=== PATIENT | male | born 1985 | race Caucasian/White ===

== ENCOUNTER 2018-09-01 15:07 | Emergency (ER) | payer OTHER ==
--- NOTE | 2018-09-01 15:35 | ER ---
Nurse's Notes [facility] Name: Cody Barrios Age: 33 yrs Sex: Male : 1985 Arrival Date: 09/01/2018 Time: 15:10 Bed 23 Private MD: Diagnosis: Otalgia, right ear Presentation: 09/01 15:13 Presenting complaint: Patient states: "I haven't been able to hear out of my right ear aa5 for about a week". Pt c/o pressure to right ear. Transition of care: patient was not received from another setting of care. Onset of symptoms was August 2018. Risk Assessment: Do you want to hurt yourself or someone else? Patient reports no desire to harm self or others. Initial Sepsis Screen: Does the patient meet any 2 criteria? No. Patient's initial sepsis screen is negative. Does the patient have a suspected source of infection? No. Patient's initial sepsis screen is negative. Care prior to arrival: None. 15:13 Method Of Arrival: Ambulatory aa5 15:13 Acuity: SEAMUS 5 aa5 Historical: - Allergies: 15:13 EGG/POULTRY; aa5 15:13 Peanut; aa5 - PMHx: 15:13 Asthma; aa5 - PSHx: 15:13 None; aa5 - Immunization history:: Flu vaccine is not up to date. - Social history:: Smoking status: Patient uses tobacco products, smokes one-half pack cigarettes per day. - Ebola Screening: : No symptoms or risks identified at this time. Screenin:22 Abuse screen: Denies threats or abuse. Nutritional screening: No deficits noted. tw2 Tuberculosis screening: No symptoms or risk factors identified. Fall Risk None identified. Assessment: 15:27 General: Appears in no apparent distress. Behavior is calm, cooperative, appropriate tw2 for age. Pain: Complains of pain in right ear. Neuro: Level of Consciousness is awake, alert, obeys commands, Oriented to person, place, time, situation. Cardiovascular: Patient's skin is warm and dry. Respiratory: Airway is patent Respiratory effort is even, unlabored, Respiratory pattern is regular, symmetrical, Breath sounds are clear bilaterally. GI: No signs and/or symptoms were reported involving the gastrointestinal system. : No signs and/or symptoms were reported regarding the genitourinary system. EENT: Reports pain in right ear pt reports right ear as plugged up and unable to hear from.. Derm: No signs and/or symptoms reported regarding the dermatologic system. Musculoskeletal: Range of motion: intact in all extremities. 15:38 Reassessment: Patient appears in no apparent distress at this time. No changes from tw2 previously documented assessment. Patient and/or family updated on plan of care and expected duration. Pain level reassessed. Patient is alert, oriented x 3, equal unlabored respirations, skin warm/dry/pink. Vital Signs: 15:14 BP 113 / 83; Pulse 99; Resp 18 S; Temp 97.5(TE); Pulse Ox 97% on R/A; Weight 92.08 kg aa5 (R); Height 6 ft. 0 in. (182.88 cm) (R); Pain 10/10; 15:14 Body Mass Index 27.53 (92.08 kg, 182.88 cm) aa5 ED Course: 15:10 Patient arrived in ED. as 15:13 Triage completed. aa5 15:13 Arm band placed on. aa5 15:21 Hector Hernández PA is PHCP. cp 15:21 Irvin Hamilton MD is Attending Physician. cp 15:21 Leanne Clark, LEN is Primary Nurse. tw2 15:22 Bed in low position. Call light in reach. tw2 15:34 Betzy Marino MD is Referral Physician. cp 15:38 No apparent distress. tw2 15:38 No provider procedures requiring assistance completed. Patient did not have IV access tw2 during this emergency room visit. Administered Medications: No medications were administered Outcome: 15:34 Discharge ordered by . cp 15:38 Discharged to home ambulatory. tw2 15:38 Condition: stable 15:38 Discharge instructions given to patient, Instructed on discharge instructions, follow up and referral plans. medication usage, Demonstrated understanding of instructions, follow-up care, medications, Prescriptions given X 2. 15:38 Patient left the ED. tw2 Signatures: Vee Inman Audri, RN RN aa5 Hector Hernández PA PA cp Leanne Clark RN RN tw2
--- NOTE | 2018-09-01 15:35 | EDPHYS ---
Physician Documentation [facility] Name: Cody Barrios Age: 33 yrs Sex: Male : 1985 Arrival Date: 09/01/2018 Time: 15:10 Bed 23 Private MD: ED Physician Irvin Hamilton HPI: 09/01 15:29 This 33 yrs old Male presents to ER via Ambulatory with complaints of Ear cp Pain. 15:29 The patient presents with hearing loss, partial, pain, pressure. The complaints affect cp the right ear. 15:30 Onset: The symptoms/episode began/occurred 1 week(s) ago. Associated signs and cp symptoms: Pertinent positives: cough, Pertinent negatives: fever, rhinorrhea, sinus trouble, sore throat, vomiting. Severity of symptoms: in the emergency department the symptoms are unchanged despite home interventions. Historical: - Allergies: 15:13 EGG/POULTRY; aa5 15:13 Peanut; aa5 - PMHx: 15:13 Asthma; aa5 - PSHx: 15:13 None; aa5 - Immunization history:: Flu vaccine is not up to date. - Social history:: Smoking status: Patient uses tobacco products, smokes one-half pack cigarettes per day. - Ebola Screening: : No symptoms or risks identified at this time. ROS: 15:30 Eyes: Negative for injury, pain, redness, and discharge. cp 15:30 Constitutional: Negative for body aches, chills, fever, poor PO intake. 15:30 ENT: Positive for ear pain, hearing loss, Negative for drainage from ear(s), sinus congestion, sinus pain, sore throat, difficulty swallowing, difficulty handling secretions. 15:30 Respiratory: Positive for cough, Negative for shortness of breath, wheezing. 15:30 Abdomen/GI: Negative for abdominal pain, vomiting, diarrhea, constipation. 15:30 Skin: Negative for cellulitis, rash. 15:30 Neuro: Negative for altered mental status, headache, weakness. 15:30 All other systems are negative. Exam: 15:32 Head/Face: Normocephalic, atraumatic. cp 15:32 Constitutional: The patient appears in no acute distress, alert, awake, non-toxic, well developed, well nourished. 15:32 Eyes: Periorbital structures: appear normal, Conjunctiva: normal, no exudate, no injection, Sclera: no appreciated abnormality, Lids and lashes: appear normal, bilaterally. 15:32 ENT: External ear(s): pain with movement, that is mild, of the right preauricular area, Ear canal(s): erythema, of the right canal, moderate amount cerumen, TM's: right TM obstructed by cerumen, Examination of the other ear shows no obvious abnormality, Nose: is normal, Mouth: is normal, Posterior pharynx: Airway: no evidence of obstruction, patent. 15:32 Neck: ROM/movement: is normal, is supple, without pain, no range of motions limitations, no nuchal rigidity, Lymph nodes: no appreciated lymphadenopathy. 15:32 Chest/axilla: Inspection: normal. cp 15:32 Cardiovascular: Rate: normal, Rhythm: regular. 15:32 Respiratory: the patient does not display signs of respiratory distress, Respirations: normal. 15:32 Skin: cellulitis, is not appreciated, no rash present. Vital Signs: 15:14 BP 113 / 83; Pulse 99; Resp 18 S; Temp 97.5(TE); Pulse Ox 97% on R/A; Weight 92.08 kg aa5 (R); Height 6 ft. 0 in. (182.88 cm) (R); Pain 10/10; 15:14 Body Mass Index 27.53 (92.08 kg, 182.88 cm) aa5 MDM: 15:21 Patient medically screened. cp 15:25 Differential diagnosis: otitis media, otitis externa, ruptured TM, acute otalgia, cp cerumen impaction. 15:33 Data reviewed: vital signs, nurses notes, and as a result, I will discharge patient. cp 15:33 Counseling: I had a detailed discussion with the patient and/or guardian regarding: the cp historical points, exam findings, and any diagnostic results supporting the discharge/admit diagnosis, the need for outpatient follow up, an ENT specialist, to return to the emergency department if symptoms worsen or persist or if there are any questions or concerns that arise at home. Administered Medications: No medications were administered Disposition: 09/01/18 15:34 Discharged to Home. Impression: Otalgia, right ear. - Condition is Stable. - Discharge Instructions: Earache, Adult. - Prescriptions for Amoxicillin 875 mg Oral Tablet - take 1 tablet by ORAL route every 12 hours for 10 days; 20 tablet. Medrol (William) 4 mg Oral Tablets, Dose Pack - take 1 tablet by ORAL route as directed - follow package instructions; 1 packet. - Medication Reconciliation Form, Thank You Letter, Antibiotic Education, Prescription Opioid Use, Work release form form. - Follow up: Betzy Marino MD; When: 2 - 3 days; Reason: symptoms continue. - Problem is new. - Symptoms are unchanged. Addendum: 09/04/2018 07:10 Co-signature as Attending Physician, Irvin Hamilton MD I agree with the assessment and k dr plan of care. Signatures: Irvin Hamilton MD MD [facility] Karen Parker, RN RN aa5 Hector Hernández PA PA cp Leanne Clark, RN RN tw2 Corrections: (The following items were deleted from the chart) 09/01 15:38 15:34 09/01/2018 15:34 Discharged to Home. Impression: Otalgia, right ear. Condition is tw2 Stable. Forms are Work release form, Medication Reconciliation Form, Thank You Letter, Antibiotic Education, Prescription Opioid Use. Follow up: Betzy Marino; When: 2 - 3 days; Reason: symptoms continue. Problem is new. Symptoms are unchanged. cp
[2018-09-01 16:28] VITALS: BP 113/83; TEMP 97.5; O2SAT 97
== END 2018-09-01 15:38 | disposition home or self-care (01) ==
LOC: ER 15:07
DX: H92.01 Otalgia, right ear (principal); F17.210 Nicotine dependence, cigarettes, uncomplicated; Z91.010 Allergy to peanuts; Z91.012 Allergy to eggs; Z91.018 Allergy to other foods
CPT/HCPCS: 99282

== ENCOUNTER 2020-05-04 09:39 | Emergency (ER) | payer OTHER, SELFPAY ==
--- NOTE | 2020-05-04 10:20 | EDPHYS ---
Physician Documentation [facility] Name: Cody Barrios Age: 34 yrs Sex: Male : 1985 Arrival Date: 05/04/2020 Time: 09:42 Bed 6 Private MD: ED Physician José Morales HPI: 05/04 09:57 This 34 yrs old Male presents to ER via Ambulatory with complaints of Hand rn Injury. 09:57 The patient or guardian reports injury, pain, swelling. The complaints affect the MCP rn of right ring finger and MCP of right little finger. Onset: The symptoms/episode began/occurred yesterday. Modifying factors: The symptoms are alleviated by nothing, the symptoms are aggravated by movement. Severity of symptoms: At their worst the symptoms were moderate, in the emergency department the symptoms are unchanged. The patient has not experienced similar symptoms in the past. Reports accidentally punched wall yesterday, did not hit a human mouth or suffer a cut. Is right handed. Increased pain and swelling today. . Historical: - Allergies: 09:48 EGG/POULTRY; sv 09:48 Peanut; sv - PMHx: 09:48 Asthma; sv - PSHx: 09:49 right wrist; sv - Immunization history:: Flu vaccine is not up to date. - Social history:: Smoking status: Patient reports the use of cigarette tobacco products, smokes one-half pack cigarettes per day. - Family history:: not pertinent. - Hospitalizations: : No recent hospitalization is reported. ROS: 09:57 MS/Extremity: + right hand injury and swelling rn Exam: 09:57 Constitutional: This is a well developed, well nourished patient who is awake, alert, rn appears in pain MS/ Extremity: Pulses equal, no cyanosis. NV intact. + right hand with tenderness and swelling 4th/5th MC region, no laceration. Vital Signs: 09:47 BP 141 / 90; Pulse 81; Resp 20; Temp 98.8; Pulse Ox 99% ; Weight 90.72 kg; Height 6 ft. sv 0 in. (182.88 cm); Pain 7/10; 10:30 BP 121 / 77; Pulse 63; Resp 16; Pulse Ox 98% ; sv 09:47 Body Mass Index 27.12 (90.72 kg, 182.88 cm) sv MDM: 09:43 Patient medically screened. rn 10:17 Differential diagnosis: closed fracture. Data reviewed: vital signs, nurses notes, rn radiologic studies, plain films, and as a result, I will discharge patient. Test interpretation: by ED physician or midlevel provider: plain radiologic studies, Xray right hand shows comminuted distal right 5th MC fracture. Counseling: I had a detailed discussion with the patient and/or guardian regarding: the historical points, exam findings, and any diagnostic results supporting the discharge/admit diagnosis, radiology results, the need for outpatient follow up, to return to the emergency department if symptoms worsen or persist or if there are any questions or concerns that arise at home. Response to treatment: the patient's symptoms have mildly improved after treatment, and as a result, I will discharge patient. Special discussion: I discussed with the patient/guardian in detail that at this point there is no indication for admission to the hospital. It is understood, however, that if the symptoms persist or worsen the patient needs to return immediately for re-evaluation. Based on the history and exam findings, there is no indication for further emergent testing or inpatient evaluation. I discussed with the patient/guardian the need to see the hand specialist for further evaluation of the symptoms. ED course: Will splint, no scissoring on exam noted, minimal displacement on xray, will f/u with hand surgery for possible surgical fixation.. 05/04 09:55 Order name: XRAY Hand RIGHT 3 View; Complete Time: 10:38 rn 05/04 10:16 Order name: Splint - Ulnar Gutter; Complete Time: 10:37 rn Administered Medications: 10:20 Drug: morphine 4 mg Route: IM; Site: left deltoid; sv 10:48 Follow up: Response: No adverse reaction; RASS: Alert and Calm (0) sv Disposition: 05/04/20 10:19 Discharged to Home. Impression: Displaced fracture of shaft of fifth metacarpal bone, right hand. - Condition is Stable. - Discharge Instructions: Metacarpal Fracture, Wrist Splint. - Prescriptions for Tylenol- Codeine #3 300-30 mg Oral Tablet - take 1 tablet by ORAL route every 6 hours As needed; 15 tablet. - Medication Reconciliation Form, Thank You Letter, Antibiotic Education, Prescription Opioid Use form. - Follow up: Jose Fuentes MD; When: 5 - 6 days; Reason: Recheck today's complaints, Re-evaluation by your physician. - Problem is new. - Symptoms have improved. Signatures: Dispatcher [employer] Betzy Healy RN RN José Morales MD MD rn transitional: (The following items were deleted from the chart) 09:49 09:48 PSHx: None; sv sv 10:49 10:19 05/04/2020 10:19 Discharged to Home. Impression: Displaced fracture of shaft of sv fifth metacarpal bone, right hand. Condition is Stable. Forms are Medication Reconciliation Form, Thank You Letter, Antibiotic Education, Prescription Opioid Use. Follow up: Jose Fuentes; When: 5 - 6 days; Reason: Recheck today's complaints, Re-evaluation by your physician. Problem is new. Symptoms have improved. rn
--- NOTE | 2020-05-04 10:20 | ER ---
Nurse's Notes [facility] Name: Cody Barrios Age: 34 yrs Sex: Male : 1985 Arrival Date: 05/04/2020 Time: 09:42 Bed 6 Private MD: Diagnosis: Displaced fracture of shaft of fifth metacarpal bone, right hand Presentation: 05/04 09:47 Chief complaint: Patient states: right hand injury after punching a wall on accident sv last night. Coronavirus screen: Client denies travel out of the [place] in the last 14 days. At this time, the client does not indicate any symptoms associated with coronavirus-19. Ebola Screen: No symptoms or risks identified at this time. Initial Sepsis Screen: Does the patient meet any 2 criteria? No. Patient's initial sepsis screen is negative. Does the patient have a suspected source of infection? No. Patient's initial sepsis screen is negative. Risk Assessment: Do you want to hurt yourself or someone else? Patient reports no desire to harm self or others. Onset of symptoms was May 03, 2020. 09:47 Method Of Arrival: Ambulatory 09:47 Acuity: SEAMUS 3 sv Triage Assessment: 09:48 General: Appears in no apparent distress. uncomfortable, well developed, Behavior is sv calm, cooperative, appropriate for age. Pain: Complains of pain in right hand Pain currently is 7 out of 10 on a pain scale. Neuro: Level of Consciousness is awake, alert, obeys commands, Oriented to person, place, time, situation, Moves all extremities. Full function Gait is steady. Cardiovascular: Patient's skin is warm and dry. Respiratory: Respiratory effort is even, unlabored, Respiratory pattern is regular, symmetrical. Musculoskeletal: Range of motion: intact in all extremities, Swelling present in right hand. Injury Description: none. Historical: - Allergies: 09:48 EGG/POULTRY; sv 09:48 Peanut; sv - PMHx: 09:48 Asthma; sv - PSHx: 09:49 right wrist; sv - Immunization history:: Flu vaccine is not up to date. - Social history:: Smoking status: Patient reports the use of cigarette tobacco products, smokes one-half pack cigarettes per day. - Family history:: not pertinent. - Hospitalizations: : No recent hospitalization is reported. Screenin:48 Abuse screen: Denies threats or abuse. Nutritional screening: No deficits noted. em Tuberculosis screening: No symptoms or risk factors identified. Fall Risk None identified. Assessment: 10:03 Reassessment: Xray at the bedside. sv 10:07 Reassessment: Patient appears in no apparent distress at this time. No changes from sv previously documented assessment. Patient and/or family updated on plan of care and expected duration. Pain level reassessed. Patient is alert, oriented x 3, equal unlabored respirations, skin warm/dry/pink. 10:20 Reassessment: Pt up for discharge but is waiting IM shot time. sv 10:47 Reassessment: Patient appears in no apparent distress at this time. Patient and/or sv family updated on plan of care and expected duration. Pain level reassessed. Patient is alert, oriented x 3, equal unlabored respirations, skin warm/dry/pink. Vital Signs: 09:47 BP 141 / 90; Pulse 81; Resp 20; Temp 98.8; Pulse Ox 99% ; Weight 90.72 kg; Height 6 ft. sv 0 in. (182.88 cm); Pain 7/10; 10:30 BP 121 / 77; Pulse 63; Resp 16; Pulse Ox 98% ; sv 09:47 Body Mass Index 27.12 (90.72 kg, 182.88 cm) sv ED Course: 09:42 Patient arrived in ED. mr 09:43 Betzy Montgomery, RN is Primary Nurse. sv 09:43 José Morales MD is Attending Physician. rn 09:47 Triage completed. sv 09:48 Arm band placed on Patient placed in an exam room, on a stretcher. sv 09:48 Patient has correct armband on for positive identification. Bed in low position. Call em light in reach. Pulse ox on. NIBP on. 09:54 ED physician to see patient. sv 10:06 X-ray(s) taken. sv 10:07 Awaiting radiology results. sv 10:12 XRAY Hand RIGHT 3 View In Process Unspecified. EDMS 10:19 Jose Fuentes MD is Referral Physician. rn 10:36 Orthoglass splint: Ulnar gutter/Boxer splint applied on right forearm. capillary refill dh3 <3 seconds, assisted by Betzy Montgomery and Dr. Morales. 10:47 Assist provider with bone marrow aspiration. Patient did not have IV access during this emergency room visit. Administered Medications: 10:20 Drug: morphine 4 mg Route: IM; Site: left deltoid; 10:48 Follow up: Response: No adverse reaction; RASS: Alert and Calm (0) Outcome: 10:19 Discharge ordered by . rn 10:47 Discharged to home ambulatory, with family. sv 10:47 Condition: stable 10:47 Discharge instructions given to patient, Instructed on discharge instructions, follow up and referral plans. medication usage, Demonstrated understanding of instructions, follow-up care, medications, Prescriptions given X 1. 10:49 Patient left the ED. Signatures: Dispatcher [employer] Betzy Healy RN RN Holly Rodríguez Edgar, RN RN em Nieto, Roman, MD MD rn Herrera, Deanna 3 Corrections: (The following items were deleted from the chart) 09:49 09:48 PSHx: None; [facility]
--- NOTE | 2020-05-04 10:27 | RAD REPORT ---
EXAM DESCRIPTION: RAD - Hand Right 3 View - 05/04/2020 10:12 am CLINICAL HISTORY: Pain;Swelling COMPARISON: No comparisons FINDINGS: Hardware is in place from distal right radius fracture repair. Ulna styloid is a free bony structure. This is chronic and is probably congenital rather than ununited old fracture. Patient has an acute fracture of the distal fifth metacarpal at the shaft - head junction. Patient fischer s very minimal ventral angulation. Distraction along the dorsal margin is 1 millimeter. No periosteal reaction. No pathologic bone process. No other acute bone or joint finding. No foreign body or signi ficant soft tissue abnormality. IMPRESSION: Distal right fifth metacarpal fracture at the shaft - head junction. Very minimal ventra l angulation of the metacarpal head.
[2020-05-04] MEDS ORDERED: MORPHINE 4 MG/ML SYR ONE (10:32)
[2020-05-04 11:00] VITALS: BP 141/90; TEMP 98.8; O2SAT 99
== END 2020-05-04 10:49 | disposition home or self-care (01) ==
LOC: ER 09:39
PROC: 2W3CX1Z Immobilization of Right Lower Arm using Splint (ICD-10-PCS; principal; 2020-05-04)
DX: S62.326A Displaced fracture of shaft of fifth metacarpal bone, right hand, initial encounter for closed fracture (principal); W22.8XXA Striking against or struck by other objects, initial encounter; Y93.89 Activity, other specified; Y92.9 Unspecified place or not applicable; Z91.010 Allergy to peanuts; Z91.012 Allergy to eggs; Z91.018 Allergy to other foods; F17.210 Nicotine dependence, cigarettes, uncomplicated
CPT/HCPCS: 96372; 99284

== ENCOUNTER 2020-11-02 09:33 | Emergency (ER) | payer SELFPAY ==
[2020-11-02] MEDS ORDERED: dexAMETHasone 10 MG/ML VIAL ONE (12:52)
[2020-11-02] MEDS ORDERED: ALBUTEROL INHALER 60 PUFF/8 GM IH ONE (12:52)
--- NOTE | 2020-11-02 12:58 | RAD REPORT ---
EXAM DESCRIPTION: Sadi Single View11/02/2020 12:53 pm CLINICAL HISTORY: cough COMPARISON: none FINDINGS: The lungs appear clear of acute infiltrate. The heart is normal size IMPRESSION: No acute abnormalities displayed
[2020-11-02 12:59] LABS: SARS-COV-2 RT PCR NEGATIVE (NEGATIVE)
--- NOTE | 2020-11-02 13:12 | EDPHYS ---
Physician Documentation [facility] Name: Cody Barrios Age: 35 yrs Sex: Male : 1985 Arrival Date: 11/02/2020 Time: 09:37 Bed 8 Private MD: ED Physician Jewel Owens HPI: 11/02 12:26 This 35 yrs old Male presents to ER via Ambulatory with complaints of Cough, pm1 Breathing Difficulty. 12:26 The patient or guardian reports cough. Onset: The symptoms/episode began/occurred 3 pm1 day(s) ago. Severity of symptoms: in the emergency department the symptoms are actually worse. Modifying factors: The symptoms are alleviated by nothing, the symptoms are aggravated by history of asthma without any medications. Associated signs and symptoms: Pertinent positives: sore throat, Pertinent negatives: chest pain, diarrhea, fever, vomiting. The patient has not experienced similar symptoms in the past. The patient has not recently seen a physician. Patient's coworker tested positive for covid recently. Historical: - Allergies: 10:10 EGG/POULTRY; ss 10:10 Peanut; ss - PMHx: 10:10 Asthma; ss - PSHx: 10:10 right wrist; ss - Immunization history:: Adult Immunizations up to date. - Social history:: Smoking status: Patient reports the use of cigarette tobacco products, smokes one-half pack cigarettes per day. ROS: 12:26 Constitutional: Negative for fever, chills, and weight loss. pm1 12:26 Cardiovascular: Negative for chest pain, palpitations, and edema. 12:26 Abdomen/GI: Negative for abdominal pain, nausea, vomiting, diarrhea, and constipation, Back: Negative for injury and pain, MS/Extremity: Negative for injury and deformity, Skin: Negative for injury, rash, and discoloration, Neuro: Negative for headache, weakness, numbness, tingling, and seizure. 12:26 ENT: Positive for sore throat, Negative for ear pain, difficulty swallowing, difficulty handling secretions, hoarseness. 12:26 Respiratory: Positive for cough, shortness of breath. Exam: 12:26 Constitutional: This is a well developed, well nourished patient who is awake, alert, pm1 and in no acute distress. Head/Face: Normocephalic, atraumatic. 12:26 Back: No spinal tenderness. No costovertebral tenderness. Full range of motion. Skin: Warm, dry with normal turgor. Normal color with no rashes, no lesions, and no evidence of cellulitis. MS/ Extremity: Pulses equal, no cyanosis. Neurovascular intact. Full, normal range of motion. 12:26 Cardiovascular: Exam negative for acute changes, Rate: normal, Rhythm: regular, Pulses: no pulse deficits are appreciated, Edema: is not appreciated. 12:26 Respiratory: the patient does not display signs of respiratory distress, Breath sounds: wheezing: expiratory that is mild, is heard diffusely. 12:26 Neuro: Exam negative for acute changes, Orientation: is normal, Mentation: is normal, Motor: is normal, moves all fours. Vital Signs: 10:08 BP 136 / 78; Pulse 74; Resp 16; Temp 97.8(TE); Pulse Ox 98% on R/A; Weight 90.72 kg; ss Height 6 ft. 0 in. (182.88 cm); Pain 0/10; 12:03 BP 123 / 78; Pulse 56; Resp 20; Pulse Ox 99% on R/A; hb 12:39 BP 130 / 82; Pulse 49; Resp 26; Pulse Ox 95% on R/A; sv 10:08 Body Mass Index 27.12 (90.72 kg, 182.88 cm) ss MDM: 11:46 Patient medically screened. pm1 13:04 Data reviewed: vital signs. Data interpreted: Pulse oximetry: on room air is 95 %. pm1 Interpretation: normal. 13:10 Counseling: I had a detailed discussion with the patient and/or guardian regarding: the pm1 historical points, exam findings, and any diagnostic results supporting the discharge/admit diagnosis, lab results, radiology results, the need for outpatient follow up, to return to the emergency department if symptoms worsen or persist or if there are any questions or concerns that arise at home. 11/02 11:48 Order name: Strep; Complete Time: 13:04 pm1 11/02 12:21 Order name: Chest Single View XRAY; Complete Time: 13:04 pm1 11/02 12:46 Order name: Throat Culture EDTX 11/02 12:59 Order name: COVID-19/FLU A+B; Complete Time: 13:04 [facility] 11/02 11:48 Order name: Droplet/Contact Precautions; Complete Time: 11:54 pm1 11/02 11:48 Order name: Labs collected and sent; Complete Time: 12:03 pm1 11/02 11:48 Order name: O2 Per Protocol; Complete Time: 12:03 pm1 Administered Medications: 12:37 Drug: Albuterol HFA Inhaler 2 puffs Route: Inhalation; sv 12:37 Drug: Decadron (dexamethasone) 10 mg Route: IM; Site: right deltoid; sv Disposition: 14:12 Co-signature as Attending Physician, Jewel Owens MD. johnathan Disposition: 11/02/20 13:11 Discharged to Home. Impression: Acute upper respiratory infection, unspecified. - Condition is Stable. - Discharge Instructions: Upper Respiratory Infection, Adult. - Prescriptions for Bromfed DM 2- 30-10 mg/5 mL Oral syrup - take 10 milliliter by ORAL route every 4 hours As needed; 240 milliliter. Prednisone 20 mg Oral Tablet - take 3 tablet by ORAL route once daily for 5 days; 15 tablet. Albuterol Sulfate 2.5 mg /3 mL (0.083 %) Inhalation Solution for Nebulization - inhale 1 unit by NEBULIZATION route every 8 hours As needed; 1 box. Albuterol Sulfate 90 mcg/actuation - inhale 1-2 puff by INHALATION route every 4-6 hours; 1 Inhaler. - Work release form, Medication Reconciliation Form, Thank You Letter, Antibiotic Education, Prescription Opioid Use form. - Follow up: Emergency Department; When: As needed; Reason: Worsening of condition. Follow up: Private Physician; When: 2 - 3 days; Reason: Recheck today's complaints, Continuance of care, Re-evaluation by your physician. - Problem is new. - Symptoms have improved. Signatures: Dispatcher [employer] EDMS Betzy Montgomery RN RN sv Lam, Pin, MD MD pkl Rhoda Barton RN RN ss Marinas, Patrick, [employer]IST pm1 Alissa Brown RN RN Corrections: (The following items were deleted from the chart) 12:08 11:48 Influenza Screen (A \T\ B)+BA.LAB.BRZ ordered. EDMS EDMS 12:08 11:48 CORONAVIRUS+MR.LAB.BRZ ordered. EDMS EDMS 13:49 13:11 11/02/2020 13:11 Discharged to Home. Impression: Acute upper respiratory hb infection, unspecified. Condition is Stable. Forms are Medication Reconciliation Form, Thank You Letter, Antibiotic Education, Prescription Opioid Use. Follow up: Emergency Department; When: As needed; Reason: Worsening of condition. Follow up: Private Physician; When: 2 - 3 days; Reason: Recheck today's complaints, Continuance of care, Re-evaluation by your physician. Problem is new. Symptoms have improved. pm1
--- NOTE | 2020-11-02 13:12 | ER ---
Nurse's Notes [facility] Name: Cody Barrios Age: 35 yrs Sex: Male : 1985 Arrival Date: 11/02/2020 Time: 09:37 Bed 8 Private MD: Diagnosis: Acute upper respiratory infection, unspecified Presentation: 11/02 10:08 Chief complaint: Patient states: cough and shortness of breath that began 3 days ago. 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 Coronavirus screen: Client denies travel out of the [place] in the last 14 days. Ebola Screen: Patient denies exposure to infectious person. Patient denies travel to an Ebola-affected area in the 21 days before illness onset. Initial Sepsis Screen: Does the patient meet any 2 criteria? No. Patient's initial sepsis screen is negative. Does the patient have a suspected source of infection? No. Patient's initial sepsis screen is negative. Risk Assessment: Do you want to hurt yourself or someone else? Patient reports no desire to harm self or others. Onset of symptoms was October 30, 2020. 10:08 Method Of Arrival: Ambulatory ss 10:08 Acuity: SEAMUS 3 ss Historical: - Allergies: 10:10 EGG/POULTRY; ss 10:10 Peanut; ss - PMHx: 10:10 Asthma; ss - PSHx: 10:10 right wrist; ss - Immunization history:: Adult Immunizations up to date. - Social history:: Smoking status: Patient reports the use of cigarette tobacco products, smokes one-half pack cigarettes per day. Screenin:05 Abuse screen: Denies threats or abuse. Denies injuries from another. Nutritional hb screening: No deficits noted. Tuberculosis screening: No symptoms or risk factors identified. Fall Risk None identified. Assessment: 12:04 General: Appears in no apparent distress. Behavior is calm, cooperative. Pain: Denies hb pain. Neuro: Level of Consciousness is awake, alert, obeys commands, Oriented to person, place, time, situation. Cardiovascular: Capillary refill < 3 seconds Patient's skin is warm and dry. Rhythm is sinus bradycardia. Respiratory: Reports shortness of breath cough that is non-productive, persistent Airway is patent Respiratory effort is mildly labored Respiratory pattern is symmetrical. GI: No signs and/or symptoms were reported involving the gastrointestinal system. : No signs and/or symptoms were reported regarding the genitourinary system. EENT: No signs and/or symptoms were reported regarding the EENT system. Derm: Skin is pink, warm \T\ dry. Musculoskeletal: No signs and/or symptoms reported regarding the musculoskeletal system. Vital Signs: 10:08 BP 136 / 78; Pulse 74; Resp 16; Temp 97.8(TE); Pulse Ox 98% on R/A; Weight 90.72 kg; ss Height 6 ft. 0 in. (182.88 cm); Pain 0/10; 12:03 BP 123 / 78; Pulse 56; Resp 20; Pulse Ox 99% on R/A; hb 12:39 BP 130 / 82; Pulse 49; Resp 26; Pulse Ox 95% on R/A; sv 10:08 Body Mass Index 27.12 (90.72 kg, 182.88 cm) ED Course: 09:37 Patient arrived in ED. mr 10:10 Triage completed. ss 10:10 Arm band placed on right wrist. ss 11:38 Michael Garsia NP is PHCP. pm1 11:38 Jewel Owens MD is Attending Physician. pm1 11:53 Alissa Brown, LEN is Primary Nurse. hb 12:03 Strep Sent. hb 12:05 Patient has correct armband on for positive identification. Call light in reach. Side hb rails up X 1. 12:49 Chest Single View XRAY In Process Unspecified. EDMS Administered Medications: 12:37 Drug: Albuterol HFA Inhaler 2 puffs Route: Inhalation; sv 12:37 Drug: Decadron (dexamethasone) 10 mg Route: IM; Site: right deltoid; sv Outcome: 13:11 Discharge ordered by MD. pm1 13:49 Patient left the ED. hb Signatures: Dispatcher [employer] EDMS Betzy Montgomery RN RN sv RiveraHolly mr Rhoda Barton RN RN Michael Garsia NP HEAD SAWYER pm1 Alissa Brown, LEN RN hb Corrections: (The following items were deleted from the chart) 12:08 12:03 CORONAVIRUS+MR.LAB.BRZ drawn and sent. hb EDMS 12:08 12:03 Influenza Screen (A \T\ B)+BA.LAB.BRZ drawn and sent. hb EDMS
[2020-11-02 13:54] VITALS: TEMP 97.8
[2020-11-02 13:57] VITALS: BP 130/82; O2SAT 95
== END 2020-11-02 13:49 | disposition home or self-care (01) ==
LOC: ER 09:33
DX: J06.9 Acute upper respiratory infection, unspecified (principal); Z20.822 Contact with and (suspected) exposure to COVID-19; F17.210 Nicotine dependence, cigarettes, uncomplicated; Z91.010 Allergy to peanuts; Z91.012 Allergy to eggs; Z91.018 Allergy to other foods
CPT/HCPCS: 0240U; 71045; 87070; 87081; 96372; 99284; J1100

== ENCOUNTER 2021-05-19 15:33 | Emergency (ER) | payer SELFPAY ==
[2021-05-19] MEDS ORDERED: dexAMETHasone 10 MG/ML VIAL ONE (17:52)
--- NOTE | 2021-05-19 17:55 | EDPHYS ---
Physician Documentation [facility] Name: Cody Barrios Age: 35 yrs Sex: Male : 1985 Arrival Date: 05/19/2021 Time: 15:39 Bed 6 Private MD: ED Physician Jewel Owens HPI: 05/19 17:49 This 35 yrs old Male presents to ER via Ambulatory with complaints of pkl Swelling, Rash. 17:49 The rash is located on the body diffusely. The rash can be described as patchy. Onset: pkl The symptoms/episode began/occurred 2 day(s) ago. Rash broke out after working in the yard over the weekend. Historical: - Allergies: 15:51 EGG/POULTRY; aa5 15:51 Peanut; aa5 - PMHx: 15:51 Asthma; aa5 - PSHx: 15:51 wrist; aa5 - Immunization history:: Client reports having NOT received the Covid vaccine. - Social history:: Smoking status: Patient reports the use of cigarette tobacco products, smokes one-half pack cigarettes per day. ROS: 17:49 Eyes: Negative for injury, pain, redness, and discharge, ENT: Negative for injury, pkl pain, and discharge, Neck: Negative for injury, pain, and swelling, Cardiovascular: Negative for chest pain, palpitations, and edema, Respiratory: Negative for shortness of breath, cough, wheezing, and pleuritic chest pain, Abdomen/GI: Negative for abdominal pain, nausea, vomiting, diarrhea, and constipation, Back: Negative for injury and pain, : Negative for injury, bleeding, discharge, and swelling, MS/Extremity: Negative for injury and deformity, Neuro: Negative for headache, weakness, numbness, tingling, and seizure. 17:49 Skin: Positive for rash, diffusely. Exam: 17:49 Eyes: Pupils equal round and reactive to light, extra-ocular motions intact. Lids and pkl lashes normal. Conjunctiva and sclera are non-icteric and not injected. Cornea within normal limits. Periorbital areas with no swelling, redness, or edema. ENT: Nares patent. No nasal discharge, no septal abnormalities noted. Tympanic membranes are normal and external auditory canals are clear. Oropharynx with no redness, swelling, or masses, exudates, or evidence of obstruction, uvula midline. Mucous membranes moist. Neck: Trachea midline, no thyromegaly or masses palpated, and no cervical lymphadenopathy. Supple, full range of motion without nuchal rigidity, or vertebral point tenderness. No Meningismus. Chest/axilla: Normal chest wall appearance and motion. Nontender with no deformity. No lesions are appreciated. Cardiovascular: Regular rate and rhythm with a normal S1 and S2. No gallops, murmurs, or rubs. Normal PMI, no JVD. No pulse deficits. Respiratory: Lungs have equal breath sounds bilaterally, clear to auscultation and percussion. No rales, rhonchi or wheezes noted. No increased work of breathing, no retractions or nasal flaring. Back: No spinal tenderness. No costovertebral tenderness. Full range of motion. Neuro: Awake and alert, GCS 15, oriented to person, place, time, and situation. Cranial nerves II-XII grossly intact. Motor strength 5/5 in all extremities. Sensory grossly intact. Cerebellar exam normal. Normal gait. 17:49 Skin: rash can be described as urticarial, patchy, and is diffusely located. Vital Signs: 15:51 BP 133 / 90; Pulse 67; Resp 18 S; Temp 98.8(TE); Pulse Ox 97% on R/A; Weight 92.99 kg; aa5 Height 6 ft. 0 in. (182.88 cm) (R); 18:22 BP 123 / 88; Pulse 72; Resp 17; Temp 98.3; Pulse Ox 97% on R/A; jt3 15:51 Body Mass Index 27.80 (92.99 kg, 182.88 cm) aa5 MDM: 17:49 Data reviewed: vital signs, nurses notes. pkl 17:54 Patient medically screened. pkl Administered Medications: 17:58 Drug: Decadron (dexamethasone) 10 mg Route: IM; Site: left deltoid; jt3 18:23 Follow up: Response: No adverse reaction jt3 Disposition Summary: 05/19/21 17:54 Discharge Ordered Location: Home pkl Problem: new pkl Symptoms: are unchanged pkl Condition: Stable pkl Diagnosis - Poison sonja pkl Followup: pkl - With: Luis F Claire MD - When: 2 - 3 days - Reason: Re-evaluation by your physician Forms: - Medication Reconciliation Form pkl - Thank You Letter pkl - Antibiotic Education pkl - Prescription Opioid Use pkl Signatures: Jewel Owens MD MD pkl Karen Parker, RN RN aa5 Reji Villanueva RN RN jt3
--- NOTE | 2021-05-19 17:55 | ER ---
Nurse's Notes [facility] Name: Cody Barrios Age: 35 yrs Sex: Male : 1985 Arrival Date: 05/19/2021 Time: 15:39 Bed 6 Private MD: Diagnosis: Poison sonja Presentation: 05/19 15:50 Chief complaint: Patient states: did yard work over the weekend and woke up today with aa5 rash on face and arms. Coronavirus screen: At this time, the client does not indicate any symptoms associated with coronavirus-19. Ebola Screen: No symptoms or risks identified at this time. Initial Sepsis Screen: Does the patient meet any 2 criteria? No. Patient's initial sepsis screen is negative. Does the patient have a suspected source of infection? No. Patient's initial sepsis screen is negative. Risk Assessment: Do you want to hurt yourself or someone else? Patient reports no desire to harm self or others. Onset of symptoms was May 2021. 15:50 Method Of Arrival: Ambulatory aa5 15:50 Acuity: SEAMUS 4 aa5 Historical: - Allergies: 15:51 EGG/POULTRY; aa5 15:51 Peanut; aa5 - PMHx: 15:51 Asthma; aa5 - PSHx: 15:51 wrist; aa5 - Immunization history:: Client reports having NOT received the Covid vaccine. - Social history:: Smoking status: Patient reports the use of cigarette tobacco products, smokes one-half pack cigarettes per day. Screenin:49 Abuse screen: Denies threats or abuse. Denies injuries from another. Nutritional jt3 screening: No deficits noted. Tuberculosis screening: No symptoms or risk factors identified. Fall Risk None identified. Assessment: 17:49 General: Appears in no apparent distress. Behavior is calm, cooperative. Pain: Denies jt3 pain. Respiratory: No deficits noted. Derm: Reports increased itching, Pt. reports rash on face, arms, and stomach. Pt. was recently cutting down trees on Tuesday and symptoms started this morning. Pt. denies SOB. Airway patent on arrival. Pt. has the sniffles on exam. Errythema and some edema to face. Alert and oriented x4. Vital Signs: 15:51 BP 133 / 90; Pulse 67; Resp 18 S; Temp 98.8(TE); Pulse Ox 97% on R/A; Weight 92.99 kg; aa5 Height 6 ft. 0 in. (182.88 cm) (R); 18:22 BP 123 / 88; Pulse 72; Resp 17; Temp 98.3; Pulse Ox 97% on R/A; jt3 15:51 Body Mass Index 27.80 (92.99 kg, 182.88 cm) aa5 ED Course: 15:39 Patient arrived in ED. mr 15:49 Arm band placed on. aa5 15:51 Triage completed. aa5 17:40 Reji Villanueva, RN is Primary Nurse. jt3 17:43 Arm band placed on Patient placed in an exam room, on a stretcher. [facility] 17:45 Luis Alberto Vazquez PA is PHCP. [facility] 17:45 Jewel Owens MD is Attending Physician. [facility] 17:49 Patient has correct armband on for positive identification. Bed in low position. Call jt3 light in reach. Side rails up X2. 17:49 No provider procedures requiring assistance completed. Patient did not have IV access jt3 during this emergency room visit. 17:54 Luis F Claire MD is Referral Physician. pkl Administered Medications: 17:58 Drug: Decadron (dexamethasone) 10 mg Route: IM; Site: left deltoid; jt3 18:23 Follow up: Response: No adverse reaction jt3 Outcome: 17:54 Discharge ordered by . pkl 18:22 Discharged to home ambulatory. jt3 18:22 Condition: good 18:22 Discharge instructions given to patient, Instructed on discharge instructions, medication usage, Demonstrated understanding of instructions, medications. 18:24 Patient left the ED. jt3 Signatures: Jewel Owens MD MD pkLuis Alberto Nassar PA PA jmm Rivera, Mary mr ParkerKaren, RN RN aa5 Jermaine Mckay RN RN ll Reji Villanueva RN RN jt3
[2021-05-19 20:38] VITALS: BP 133/90; TEMP 98.8; O2SAT 97
== END 2021-05-19 18:24 | disposition home or self-care (01) ==
LOC: ER 15:33
DX: L23.7 Allergic contact dermatitis due to plants, except food (principal); Z91.012 Allergy to eggs; Z91.010 Allergy to peanuts; Z91.018 Allergy to other foods; F17.210 Nicotine dependence, cigarettes, uncomplicated
CPT/HCPCS: 96372; 99283; J1100

== ENCOUNTER 2021-11-11 12:07 | Emergency (ER) | payer BC, SELFPAY ==
--- OUTSIDE RECORDS SUMMARY | 2021-11-11 12:10 | XMS REPORT | Continuity of Care Document ---
:1985 Author Organization [facility] t Address [address] [place] [address] Care Team Providers Name Role Phone PREZAS Attending Clinician Unavailable Payers Payer Name Policy Type Policy Number Effective Date Expiration Date S naomi [facility] 2 [id number] 2021 00:00:00 Problems This patient has no known problems. Allergies, Adverse Reactions, Alerts This patient has no known allergies or adverse reactions. Medications This patient has no known medications. Procedures This patient has no known procedures. Encounters Start End Encounter Admission Attending Care Care Encounter Source Date/Time Date/Time Type Type Clinicians Facility Department ID 2021-11-11 2021-11-11 Outpatient KIERA GOLDSTEIN [id number] [place] 10:30:00 10:30:00 SALOME Seybol d 2021-11-11 2021-11-11 Outpatient KIERA GOLDSTEIN [id number] [place] 10:00:00 10:00:00 SALOME Seybol d 2021-11-11 2021-11-11 Outpatient KIERA GOLDSTEIN [id number] [place] 00:00:00 00:00:00 SALOME Seybol d Results This patient has no known results.
[2021-11-11 13:05] LABS: Absolute Lymphocytes (CBC) 1.9 K/uL (0.7-4.9); Hematocrit 45.4 % (39.6-49.0); Lymphocytes % 21.1 % (15.3-44.8); MPV 9.2 fL (7.6-11.3); RBC Red Blood Cell Count 4.87 M/uL (4.33-5.43)
[2021-11-11 13:19] LABS: Urine Bacteria <20 /HPF (NONE SEEN); Urine RBC <5 /HPF (NONE SEEN)
[2021-11-11 13:22] LABS: Bilirubin Total 0.4 mg/dL (0.2-1.0); Potassium 4.4 mmol/L (3.5-5.1); Protein, Total 7.7 g/dL (6.4-8.2)
--- NOTE | 2021-11-11 13:55 | RAD REPORT ---
EXAM DESCRIPTION: CTAbdomen Pelvis W Contrast - 11/11/2021 1:43 pm CLINICAL HISTORY: LLQ abdominal pain COMPARISON: No comparisons TECHNIQUE: CT of the abdomen and pelvis was performed. Contrast was administered. All CT scans are performed using dose optimization technique as appropriate and may include automated exposure control or mA/KV adjustment according to patient size. FINDINGS: Lower chest: No acute abnormality. Liver: Hemangioma in the left hepatic lobe. Biliary: No biliary ductal dilatation. Stomach: No significant focal abnormality. Duodenum: No significant focal abnormality. Pancreas: No significant abnormality. Spleen: No significant abnormality. Adrenal: No suspicious lesions. Kidney/ureter: No hydronephrosis. No renal calculi. Retroperitoneum: No retroperitoneal adenopathy. Vascular: No aneurysm. Bowel: No significant focal abnormality. Normal appendix. Peritoneum: Stranding associated with the globule fat in the left hemiabdomen. See image 30, series 5 02. Bladder: Grossly unremarkable. Reproductive: No adnexal masses. Bones: No acute fracture. Other: n/a IMPRESSION: Findings consistent with epiploic appendagitis in the left aspect of the abdomen. Normal appendix. No urinary tract calculi .
[2021-11-11] MEDS ORDERED: CIPROFLOXACIN HCL 500 MG TAB ONE (14:28)
[2021-11-11] MEDS ORDERED: KETOROLAC 30 MG/ML INJ ONE (14:29)
[2021-11-11] MEDS ORDERED: NA CHLORIDE 0.9% 1,000 ML ONE (14:29)
[2021-11-11] MEDS ORDERED: METRONIDAZOLE 500mg IVPB 500 MG/100 ML BAG IV ONE (14:29)
--- NOTE | 2021-11-11 14:58 | ER ---
Nurse's Notes [facility] Name: Cody Barrios Age: 36 yrs Sex: Male : 1985 Arrival Date: 11/11/2021 Time: 12:09 Bed 2 Private MD: Diagnosis: Lower abdominal pain, unspecified-epiploic appendagitis Presentation: 11/11 12:32 Chief complaint: Patient states: LLQ sharp pain since last night, last BM an hour ago jl7 and normal, denies N/V/D. Coronavirus screen: At this time, the client does not indicate any symptoms associated with coronavirus-19. Ebola Screen: No symptoms or risks identified at this time. Initial Sepsis Screen: Does the patient meet any 2 criteria? No. Patient's initial sepsis screen is negative. Does the patient have a suspected source of infection? No. Patient's initial sepsis screen is negative. Risk Assessment: Do you want to hurt yourself or someone else? Patient reports no desire to harm self or others. Onset of symptoms was November 10, 2021. 12:32 Method Of Arrival: Ambulatory [facility] 12:32 Acuity: SEAMUS 3 jl7 Triage Assessment: 12:34 General: Appears in no apparent distress. uncomfortable, Behavior is calm, cooperative, jl7 appropriate for age. Pain: Complains of pain in left lower quadrant Pain currently is 10 out of 10 on a pain scale. Quality of pain is described as sharp. Historical: - Allergies: 12:34 EGG/POULTRY; jl7 12:34 Peanut; jl7 - Home Meds: 12:34 Albuterol Inhl [Active]; jl7 - PMHx: 12:34 Asthma; jl7 - PSHx: 12:34 wrist; jl7 - Immunization history:: Adult Immunizations unknown. - Social history:: Smoking status: Patient reports the use of cigarette tobacco products, smokes one-half pack cigarettes per day. Screenin:35 Abuse screen: Denies threats or abuse. Denies injuries from another. Nutritional ph screening: No deficits noted. Tuberculosis screening: No symptoms or risk factors identified. Fall Risk None identified. Assessment: 13:07 General: Appears uncomfortable, Behavior is cooperative. Pain: Complains of pain in jh6 left lower quadrant Pain currently is 9 out of 10 on a pain scale. Quality of pain is described as crampy, sharp, shooting, Pain began suddenly, Is continuous, Alleviated by nothing. GI: Abdomen is flat, non-distended, Bowel sounds present X 4 quads. Abd is soft Abdomen is tender to palpation in left lower quadrant Reports lower abdominal pain. 13:35 Pain: Pain currently is 5 out of 10 on a pain scale. jh6 15:48 Reassessment: Patient appears in no apparent distress at this time. Patient and/or ph family updated on plan of care and expected duration. Pain level reassessed. Patient is alert, oriented x 3, equal unlabored respirations, skin warm/dry/pink. Vital Signs: 12:32 BP 137 / 83; Pulse 68; Resp 17; Temp 98.6; Pulse Ox 98% on R/A; Weight 92.99 kg; Height jl7 6 ft. 0 in. (182.88 cm); Pain 10/10; 15:49 BP 115 / 78; Pulse 61; Resp 18; Temp 98.0; Pulse Ox 99% on R/A; ph 12:32 Body Mass Index 27.80 (92.99 kg, 182.88 cm) jl7 ED Course: 12:09 Patient arrived in ED. am2 12:11 Hector Hernández PA is PHCP. cp 12:11 José Morales MD is Attending Physician. cp 12:30 Francisca Wilson, LEN is Primary Nurse. ph 12:34 Triage completed. jl7 12:34 Arm band placed on right wrist. jl7 12:35 Patient has correct armband on for positive identification. Bed in low position. Call light in reach. Side rails up X 1. Pulse ox on. NIBP on. 13:00 Inserted saline lock: 20 gauge in left antecubital area, using aseptic technique. Blood jh6 collected. 13:[address] jh6 13:45 CT Abd/Pelvis - IV Contrast Only In Process Unspecified. EDMS 15:49 No provider procedures requiring assistance completed. IV discontinued, intact, ph bleeding controlled, No redness/swelling at site. Pressure dressing applied. Administered Medications: 13:04 Drug: NS 0.9% 1000 ml Route: IV; Rate: 1 bolus; Site: left antecubital; jh6 15:50 Follow up: Response: No adverse reaction; IV Status: Completed infusion; IV Intake: ph 1000ml 13:04 Drug: Zofran (Ondansetron) 4 mg Route: IVP; Site: left antecubital; 6 13:30 Follow up: Response: No adverse reaction ph 13:05 Drug: morphine 4 mg Route: IVP; Site: left antecubital; 6 14:20 Follow up: Response: Pain is decreased 6 14:32 Drug: Ketorolac 15 mg Route: IVP; Site: left antecubital; 6 15:39 Follow up: Response: No adverse reaction ph 14:32 Drug: metroNIDAZOLE 500 mg Volume: 100 ml; Route: IVPB; Infused Over: 30 mins; Site: [facility] left antecubital; 15:39 Follow up: Response: No adverse reaction; IV Status: Completed infusion ph 14:32 Drug: Cipro (ciprofloxacin) 500 mg Route: PO; 6 15:39 Follow up: Response: No adverse reaction ph 14:33 Drug: NS 0.9% 1000 ml Route: IV; Rate: 1 bolus; Site: left antecubital; 6 15:38 Follow up: Response: No adverse reaction; IV Status: Completed infusion; IV Intake: ph 1000ml Intake: 15:38 IV: 1000ml; Total: 1000ml. ph 15:50 IV: 1000ml; Total: 2000ml. ph Outcome: 14:58 Discharge ordered by . cp 15:49 Discharged to home ambulatory. ph 15:49 Condition: good 15:49 Discharge instructions given to patient, Instructed on discharge instructions, follow up and referral plans. medication usage, Demonstrated understanding of instructions, follow-up care, medications, Prescriptions given X 4. 15:50 Patient left the ED. ph Signatures: Dispatcher [employer] Francisca Glynn RN RN ph Hector Hernández PA PA cp Leal, Jahala RN RN jl7 Jessy Pelletier Jennifer RN RN jh6
--- NOTE | 2021-11-11 14:59 | EDPHYS ---
Physician Documentation [facility] Name: Cody Barrios Age: 36 yrs Sex: Male : 1985 Arrival Date: 11/11/2021 Time: 12:09 Bed 2 Private MD: ED Physician José Morales HPI: 11/11 12:45 This 36 yrs old Male presents to ER via Ambulatory with complaints of Abdominal Pain. cp Historical: - Allergies: 12:34 EGG/POULTRY; jl7 12:34 Peanut; jl7 - Home Meds: 12:34 Albuterol Inhl [Active]; jl7 - PMHx: 12:34 Asthma; jl7 - PSHx: 12:34 wrist; jl7 - Immunization history:: Adult Immunizations unknown. - Social history:: Smoking status: Patient reports the use of cigarette tobacco products, smokes one-half pack cigarettes per day. ROS: 12:50 Constitutional: Negative for body aches, chills, fever, poor PO intake. cp 12:50 Eyes: Negative for injury, pain, redness, and discharge. cp 12:50 ENT: Negative for drainage from ear(s), ear pain, sore throat, difficulty swallowing, difficulty handling secretions. 12:50 Cardiovascular: Negative for chest pain. 12:50 Respiratory: Negative for cough, shortness of breath, wheezing. 12:50 Abdomen/GI: Positive for abdominal pain, of the left lower quadrant, Negative for vomiting, diarrhea, constipation. 12:50 Back: Negative for radiated pain. 12:50 : Negative for urinary symptoms, testicular pain 12:50 Neuro: Negative for altered mental status, headache, numbness, weakness. 12:50 All other systems are negative. Exam: 12:55 Constitutional: The patient appears in no acute distress, alert, awake, non-toxic, well cp developed, well nourished, uncomfortable. 12:55 Head/Face: Normocephalic, atraumatic. cp 12:55 Eyes: Periorbital structures: appear normal, Conjunctiva: normal, no exudate, no injection, Sclera: no appreciated abnormality, Lids and lashes: appear normal, bilaterally. 12:55 ENT: External ear(s): are unremarkable, Nose: is normal, Mouth: Lips: moist, Oral mucosa: pink and intact, moist, Posterior pharynx: Airway: no evidence of obstruction, patent. 12:55 Neck: ROM/movement: is normal, is supple, without pain, no range of motions limitations. 12:55 Chest/axilla: Inspection: normal, Palpation: is normal, no crepitus, no tenderness. 12:55 Cardiovascular: Rate: normal, Rhythm: regular. 12:55 Respiratory: the patient does not display signs of respiratory distress, Respirations: normal, no use of accessory muscles, no retractions, labored breathing, is not present, Breath sounds: are clear throughout, no decreased breath sounds, no stridor, no wheezing. 12:55 Abdomen/GI: Inspection: abdomen appears normal, Bowel sounds: active, all quadrants, Palpation: soft, in all quadrants, moderate abdominal tenderness, in the left lower quadrant, rebound tenderness, is not appreciated, voluntary guarding, is elicited in the left lower quadrant. 12:55 Back: CVA tenderness, is absent. 12:55 Neuro: Orientation: to person, place \T\ time. Mentation: is normal, Motor: moves all fours, strength is normal, Sensation: is normal. Vital Signs: 12:32 BP 137 / 83; Pulse 68; Resp 17; Temp 98.6; Pulse Ox 98% on R/A; Weight 92.99 kg; Height jl7 6 ft. 0 in. (182.88 cm); Pain 10/10; 15:49 BP 115 / 78; Pulse 61; Resp 18; Temp 98.0; Pulse Ox 99% on R/A; ph 12:32 Body Mass Index 27.80 (92.99 kg, 182.88 cm) jl7 MDM: 12:51 Patient medically screened. cp 14:57 Data reviewed: vital signs, nurses notes, lab test result(s), radiologic studies, CT cp scan. 14:57 Counseling: I had a detailed discussion with the patient and/or guardian regarding: the cp historical points, exam findings, and any diagnostic results supporting the discharge/admit diagnosis, lab results, radiology results, the need for outpatient follow up, a family practitioner, to return to the emergency department if symptoms worsen or persist or if there are any questions or concerns that arise at home. Response to treatment: the patient's symptoms have markedly improved after treatment, and as a result, I will discharge patient. 11/11 12:39 Order name: CBC with Diff; Complete Time: 13:46 cp 11/11 13:46 Interpretation: Normal except: EOSINOPHIL % 6.7; EOSA 0.6. cp 11/11 12:39 Order name: CMP; Complete Time: 13:46 cp 11/11 13:46 Interpretation: Normal except: CL 108; GFR 65. cp 11/11 12:39 Order name: Lipase; Complete Time: 13:46 cp 11/11 13:47 Interpretation: Reviewed. cp 11/11 12:39 Order name: Urine Microscopic Only; Complete Time: 13:46 cp 11/11 13:47 Interpretation: Reviewed. cp 11/11 12:39 Order name: CT Abd/Pelvis - IV Contrast Only; Complete Time: 14:14 cp 11/11 14:14 Interpretation: Report reviewed. cp 11/11 12:39 Order name: IV Saline Lock; Complete Time: 13:05 cp 11/11 12:39 Order name: Labs collected and sent; Complete Time: 13:05 cp 11/11 12:39 Order name: Urine Dipstick-Ancillary (obtain specimen); Complete Time: 13:05 cp Administered Medications: 13:04 Drug: NS 0.9% 1000 ml Route: IV; Rate: 1 bolus; Site: left antecubital; 6 15:50 Follow up: Response: No adverse reaction; IV Status: Completed infusion; IV Intake: ph 1000ml 13:04 Drug: Zofran (Ondansetron) 4 mg Route: IVP; Site: left antecubital; 6 13:30 Follow up: Response: No adverse reaction ph 13:05 Drug: morphine 4 mg Route: IVP; Site: left antecubital; 6 14:20 Follow up: Response: Pain is decreased jh6 14:32 Drug: Ketorolac 15 mg Route: IVP; Site: left antecubital; jh6 15:39 Follow up: Response: No adverse reaction ph 14:32 Drug: metroNIDAZOLE 500 mg Volume: 100 ml; Route: IVPB; Infused Over: 30 mins; Site: jh6 left antecubital; 15:39 Follow up: Response: No adverse reaction; IV Status: Completed infusion ph 14:32 Drug: Cipro (ciprofloxacin) 500 mg Route: PO; 6 15:39 Follow up: Response: No adverse reaction ph 14:33 Drug: NS 0.9% 1000 ml Route: IV; Rate: 1 bolus; Site: left antecubital; [facility] 15:38 Follow up: Response: No adverse reaction; IV Status: Completed infusion; IV Intake: ph 1000ml Disposition: 15:56 Co-signature as Attending Physician, José Morales MD. rn Disposition Summary: 11/11/21 14:58 Discharge Ordered Location: Home cp Problem: new cp Symptoms: have improved cp Condition: Stable cp Diagnosis - Lower abdominal pain, unspecified - epiploic appendagitis(11/11/21 15:02) cp Followup: cp - With: Private Physician - When: 1 - 2 days - Reason: Recheck today's complaints Discharge Instructions: - Discharge Summary Sheet cp - Epiploic Appendagitis cp Forms: - Medication Reconciliation Form cp - Thank You Letter cp - Antibiotic Education cp - Prescription Opioid Use cp - Work release form ph Prescriptions: - Zofran 4 mg Oral Tablet - take 1 tablet by ORAL route every 12 hours As needed; 20 tablet; Refills: 0, cp Product Selection Permitted - Cipro 500 mg Oral Tablet - take 1 tablet by ORAL route every 12 hours for 10 days; 20 tablet; Refills: 0, cp Product Selection Permitted - Metronidazole 500 mg Oral Tablet - take 1 tablet by ORAL route every 8 hours; 30 tablet; Refills: 0, Product cp Selection Permitted - Tylenol-Codeine #3 300 mg-30 mg Oral - take 2 tablet by ORAL route every 8-10 hours As needed; 14 tablet; Refills: 0, cp Product Selection Permitted Signatures: Dispatcher [employer] EDJosé Tellez MD MD rn Page, Corey, PA PA cp Ximena Herrmann RN RN jl7 Yasmin Canales RN RN jh6 Francisca Wilson RN ph Corrections: (The following items were deleted from the chart) 13:46 13:46 Normal except. cp cp 15:02 14:58 Lower abdominal pain, unspecified cp cp
[2021-11-11 15:58] VITALS: BP 115/78; TEMP 98; O2SAT 99
== END 2021-11-11 15:50 | disposition home or self-care (01) ==
LOC: ER 12:07
DX: K63.89 Other specified diseases of intestine (principal); F17.210 Nicotine dependence, cigarettes, uncomplicated; Z91.010 Allergy to peanuts; Z91.012 Allergy to eggs; Z91.018 Allergy to other foods
CPT/HCPCS: 85025; 36415; 81015; 83690; 80053; 74177; Q9967; J7030; J3490

== ENCOUNTER 2021-11-13 10:12 | Day surgery (SDC) | payer BC ==
[2021-11-13] MEDS ORDERED: CEFAZOLIN SODIUM 1 GM/VIAL ONE (10:37)
[2021-11-13] MEDS ORDERED: Ringers Lactate 1,000 ML IV ONE (10:37)
[2021-11-13] MEDS ORDERED: FENTANYL CITR 100 MCG/2 ML ONE (10:40)
[2021-11-13] MEDS ORDERED: propofoL 200 MG/20 ML VIAL IV ONE (10:40)
[2021-11-13] MEDS ORDERED: LIDOCAINE 1% MPF 5 ML VIAL ONE (10:41)
[2021-11-13] MEDS ORDERED: ONDANSETRON 4 MG/2 ML VIAL ONE (10:41)
[2021-11-13] MEDS ORDERED: ROCURONIUM 50 MG/5 ML VIAL IV ONE (10:41)
[2021-11-13] MEDS ORDERED: MIDAZOLAM HCL 2 MG/2 ML INJ ONE (10:41)
[2021-11-13] MEDS ORDERED: GLYCOPYRROLATE 0.2 MG/ML SYR ONE (11:31)
[2021-11-13] MEDS ORDERED: NEOSTIGMINE 1 MG/ML -5 ML ONE (11:31)
[2021-11-13] MEDS ORDERED: KETOROLAC 30 MG/ML INJ ONE (11:32)
[2021-11-13] MEDS ORDERED: dexAMETHasone 4 MG/ML VIAL ONE (11:39)
[2021-11-13] MEDS ORDERED: BUPIVACAINE 0.5% PF 10 ML VIAL ONE (11:51)
[2021-11-13] MEDS ORDERED: HYDROCODONE/APAP 7.5/325 MG TAB PO PRN (11:57)
[2021-11-13] MEDS: HYDROMORPHONE HCL 1 MG/ML INJ ONE ×2 (12:01→12:06)
[2021-11-13] MEDS ORDERED: PROMETHAZINE INJ 25 MG/ML AMP ONE (12:04)
[2021-11-13] MEDS ORDERED: HYDROMORPHONE HCL 1 MG/ML INJ ONE (12:22)
--- NOTE | 2021-11-13 12:39 | P.OP ---
Vp Public Relations: Fausto LR Preoperative diagnosis: Abdominal pain, infarcted epiploic appendage of the colon Postoperative diagnosis: Same Primary procedure: Diagnostic laparoscopy, excision of inflamed epiploic appendage Anesthesia: General Estimated blood loss: Minimal Findings: As above Complications: None Transferred to: Recovery Room Condition: Good
[2021-11-13] MEDS ORDERED: HYDROCODONE/APAP 7.5/325 MG TAB ONE (13:08)
[2021-11-13 13:09] VITALS: BP 114/66; TEMP 97.5; O2SAT 98
--- NOTE | 2021-11-14 00:45 | OP ---
Date of Procedure: 11/13/2021 Surgeon: Cipriano Ahumada MD Talent Analyst: Fausto Barry, surgical pathologist, certified. Preoperative Diagnoses: Abdominal pain and infarcted appendiceal appendagitis. Postoperative Diagnoses: Abdominal pain and infarcted appendiceal appendagitis. Procedures Performed: Diagnostic laparoscopy and excision of an inflamed epiploic appendage. Estimated Blood Loss: Minimum. Specimens: Epiploic appendage that was inflamed. Findings: As above. Anesthesia: General. Complications: None. The patient tolerated the procedure in stable condition and taken to recovery in good general condition. Procedure In Detail: The patient was brought to the OR and placed in the supine position. General a nesthesia begun. The patient was prepped and draped in usual sterile fashion. Marcaine 0.5% was inf iltrated locally. Then, a 15-blade was used to make a 1 cm supraumbilical midline incision. Subcuta neous tissue was divided. Fascia was identified and divided. #1 Vicryl stay suture was placed. Per itoneal cavity was entered with sharp and blunt dissection. A 12 mm trocar was placed into the perit blackmon cavity under direct vision. Pneumoperitoneum was established and then three 5 mm trocars were placed, 1 in the left upper quadrant, 1 in the left lower quadrant, and 1 in the suprapubic pubic reg ion. Laparoscopy revealed an inflamed epiploic appendage, appendagitis in the left middle quadrant w ith omentum attached to it, and part of it was necrosed. This was excised with LigaSure and sent to pathology as specimen. No evidence of bleeding or bowel injury was appreciated. Then, all trocars w ere removed under direct vision. Stay sutures were tied to each other to reapproximate the fascial d efect. Subcutaneous wounds were irrigated. Bleeding was controlled with cautery. A 3-0 chromic was used to approximate the subcutaneous tissue and close the skin. Sterile dressing was applied. The patient was awakened and taken to recovery in good general condition. Discharge Note: The patient will go to Day Surgery and home when stable. Disposition: Home. Condition: Stable. Discharge Instructions: Resume home meds and diet. Activity as tolerated. No heavy lifting. Remov e outer dressing in 2 days, shower. Keep wound clean and dry. Keep Steri-Strips on at all times. F ollow up in my office in a week, call for appointment. Tylenol No.3 one tablet p.o. q.4 h. p.r.n. pa in. The patient also has [place] 7.5. JANET/MCKINLEY Voice ID: [id number] Report ID: [id number]
== END 2021-11-13 13:34 | disposition home or self-care (01) ==
LOC: OR 10:12
PROVIDERS: ATTEND Surgery
PROC: 0JB80ZZ Excision of Abdomen Subcutaneous Tissue and Fascia, Open Approach (ICD-10-PCS; principal; 2021-11-13 12:00)
DX: K55.069 Acute infarction of intestine, part and extent unspecified (principal); K63.89 Other specified diseases of intestine; R10.9 Unspecified abdominal pain; I96 Gangrene, not elsewhere classified; Z20.822 Contact with and (suspected) exposure to COVID-19
CPT/HCPCS: 22902; 88304; U0003; J2704; J1100; J2550; J2250; J3010; J1170 ×2; J2710; J7120; J2405; J0690; 88305

== ENCOUNTER 2025-03-08 12:09 | Emergency (ER) | payer SELFPAY ==
--- OUTSIDE RECORDS SUMMARY | 2025-03-08 12:13 | XMS REPORT | Continuity of Care Document ---
Author Name Unknown Address [address] [place] [address] [facility] Address [address] [place] [address] Care Team Providers Care Improvement Lead Name Role Phone Salome Tracy DO Primary Care Physician [phone] [id number] Attending Clinician Unavailable TESTING, JOSE RAMON MORALES Attending Clinician U Rosio Carroll Attending Clinician [phone] ROSIO SEGUNDO Attending Clinician Unavailable SALOME TRACY Attending Clinician Unavailable Salome Tracy DO Attending Clinician [phone] Payers Payer Name Policy Type Policy Number Effective Date Expirati on Date Source [facility] 2 [id number] 2021 00:00:00 Problems Condition Name Condition Details Condition Category Status Onset Date Resolution Date Last Treatment Date Treating Clinician Comments Source Epiploic appendagit is Epiploic appendagit is Disease Active 11-12 00:00: 00 Jacquelyn Kraft Social History Social Habit Start Date Stop Date Quantity Comments Source History of tobacco use Cigarette Smoker Jacquelyn montelongo Tobacco use and exposure 2021-11-13 00:00:00 2021-11-13 00:00:00 Smokeless tobacco non-user Jacquelyn Kraft Sex Ass[birth year] At 1985 00:00:00 1985 00[birth year]:00 Jacquelyn Kraft Smoking Status Start Date Stop Date Source Smokes tobacco daily 2021-11-13 00:00:00 Jacquelyn Kraft Medications Ordered Medication Name Filled Medication Name Start Date Stop Date Current Medication? Ordering Clinician Indication Dosage Frequency Signature (SIG) Comments Components Source HYDROcodone -Acetaminop hen 7.5-325 MG oral Tablet 11-12 00:00: 00 Yes [id number] 1{tbl} [id number] 3D Take 1 tablet by mouth every 8 hours as needed for pain Jacquelyn Kraft Ciprofloxac in HCl 500 MG oral Tablet 11-11 00:00: 00 Yes Jacquelyn Kraft Metronidazo le 500 MG oral Tablet 11-11 00:00: 00 Yes Jacquelyn Kraft Ondansetron HCl 4 MG oral Tablet 11-11 00:00: 00 Yes Jacquelyn Kraft Acetaminoph en-Codeine #3 300-30 MG oral Tablet 11-11 00:00: 00 11-12 00:00 :00 No Jacquelyn Kraft Vital Signs Vital Name Observation Time Observation Value Comments S ource Systolic blood pressure 2021-11-12 20:10:00 112 mm[Hg] Jacquelyn Kraft Diastolic blood pressure 2021-11-12 20:10:00 68 mm[Hg] Jacquelyn Crawford ld Heart rate 2021-11-12 20:10:00 82 /min Lesly arreola kameronjayda Body temperature 2021-11-12 20:10:00 36.56 June Jacquelyn Sekameronjayda Respiratory rate 2021-11-12 20:10:00 14 /min Jacquelyn Kraft Body height 2021-11-12 20:10:00 182.9 cm Chantelle grant kameronjayda Body weight 2021-11-12 20:10:00 98.431 kg Chantelle grant kameronjayda BMI 2021-11-12 20:10:00 29.43 kg/m2 Chantelle Cobbjayda Encounters Start Date/Time End Date/Time Encounter Type Admission Type Attending [facility] Care Facility Care Department Encounter ID Source 2022-03-18 15:55:00 2022-03-18 15:55:00 Outpatient [id number] JACQUELYN QURESHI [id number] Jacquelyn Kraft 2022-03-18 15:00:00 2022-03-18 15:00:00 Outpatient TESTING, LJ JACQUELYN QURESHI [id number] Jacquelyn Kraft 2022-03-18 14:30:00 2022-03-18 14:45:30 Telemedici ne Rosio Segundo [id number] Jacquelyn rm 2022-03-18 00:00:00 2022-03-18 00:00:00 Outpatient ROSIO SEGUNDO JACQUELYN QURESHI [id number] Jacquelyn rm 2021-11-13 00:00:00 2021-11-13 00:00:00 Outpatient TRISTONSALOME JACQUELYN QURESHI [id number] Jacquelyn Kraft 2021-11-12 15:15:00 2021-11-12 15:45:00 Office Visit HeatherSalome ochoa Jackson [id number] Jacquelyn Kraft 2021-11-11 10:30:00 2021-11-11 10:30:00 Outpatient TRISTON SALOME QURESHI [id number] Jacquelyn Kraft 2021-11-11 10:00:00 2021-11-11 10:00:00 Outpatient SALOME TRACY [id number] Jacquelyn Kraft 2021-11-11 00:00:00 2021-11-11 00:00:00 Outpatient SALOME TRACY [id number] Jacquelyn Kraft
--- NOTE | 2025-03-08 13:26 | RAD REPORT ---
EXAMINATION: C Spine Wo Con CLINICAL INDICATION: Male, 39 years old. Pain;Numbness/tingling TECHNIQUE: Axial CT images through the cervical spine were obtained without intravenous contrast. Sag ittal and coronal reformatted images were created from the data set. One or more of the following dose reduction techniques were used: Automated exposure control, adjustment of the mA and/or kV accor ding to patient size, and/or iterative reconstruction. Unless otherwise specified, incidental findings do not require dedicated imaging follow-up. [id number]. COMPARISON: No prior exams FINDINGS: ALIGNMENT: The cervical spine has normal alignment without scoliosis or spondylolisthesis. BONE: Vertebral body heights are maintained. No aggressive osseous lesions. DEGENERATIVE: No significant focal degenerative changes. SOFT TISSUE: No significant abnormalities in the soft tissue of the neck. The visualized lung apices are clear. IMPRESSION: No acute cervical spine abnormalities.
--- NOTE | 2025-03-08 13:59 | RAD REPORT ---
EXAMINATION: Shoulder Left 2+ Views CLINICAL INDICATION: Male, 39 years old. PAIN COMPARISON: No prior exam. FINDINGS: No acute fracture. No malalignment/dislocation. No significant focal degenerative change. Other: n/a IMPRESSION: No acute osseous abnormality.
--- NOTE | 2025-03-08 14:15 | EDPHYS ---
Physician Documentation [facility] Name: Cody Barrios Age: 39 yrs Sex: Male : 1985 Arrival Date: 03/08/2025 Time: 12:09 Bed 9 Private MD: ED Physician José Morales HPI: 03/08 14:12 This 39 yrs old Male presents to ER via Ambulatory with complaints of Shoulder Pain - rn left. 14:12 The patient or guardian complains of pain. rn 14:12 left trapezius. rn 14:13 Patient reports a week and a half of pain to the left scapula region. Lifted 44 pound rn bag and felt pain to the left shoulder. No direct trauma. Patient reports waited for it to get better and is not going away completely. Reports intermittent tingling with pain down the left arm. Has never had this pain before. No weakness.. Historical: - Allergies: 12:27 EGG/POULTRY; aa5 12:27 Peanut; aa5 - PMHx: 12:27 Asthma; aa5 - PSHx: 12:27 wrist; aa5 - Immunization history:: Adult Immunizations unknown. - Infectious Disease History:: Denies. - Social history:: Smoking status: Patient reports the use of cigarette tobacco products, Reported history of juuling and/or vaping. - Family history:: not pertinent. - Hospitalizations: : No recent hospitalization is reported. ROS: 14:13 Constitutional: Negative for fever, chills, and weight loss, Neck: Positive for mild rn neck pain Cardiovascular: Negative for chest pain, palpitations, and edema, Respiratory: Negative for shortness of breath, cough, wheezing, and pleuritic chest pain, MS/Extremity: Positive for left shoulder and arm pain Neuro: Positive for tingling to the left arm Exam: 14:13 Constitutional: This is a well developed, well nourished patient who is awake, alert, rn and in no acute distress. Neck: No midline cervical tenderness MS/ Extremity: Pulses equal, no cyanosis. Neurovascular intact. Full, normal range of motion. Equal circumference. Neuro: Normal strength and sensation of left arm Vital Signs: 12:22 BP 155 / 107; Pulse 90; Resp 18 S; Temp 98.2(O); Pulse Ox 98% on R/A; Weight 92.99 kg aa5 (R); Height 6 ft. 1 in. (R); 12:22 Body Mass Index 27.05 (92.99 kg, 185.42 cm) aa5 MDM: 12:14 Medical Screening Exam initiated rn 14:13 Differential diagnosis: Muscle tear, sprain, strain, radiculopathy. Data reviewed: rn vital signs, nurses notes, radiologic studies, CT scan, plain films, and as a result, I will discharge patient. Independent interpretation of the following test(s) in the Emergency Department X-Ray: My interpretation is X-ray images left shoulder were negative for fracture dislocation per my interpretation. Counseling: I had a detailed discussion with the patient and/or guardian regarding the historical points, exam findings, and any diagnostic results supporting the discharge/admit diagnosis, radiology results, the need for outpatient follow up, to return to the emergency department if symptoms worsen or persist or if there are any questions or concerns that arise at home. Special discussion: I discussed with the patient/guardian in detail that at this point there is no indication for admission to the hospital. It is understood, however, that if the symptoms persist or worsen the patient needs to return immediately for re-evaluation. 03/08 12:26 Order name: CT C Spine; Complete Time: 14:11 aa5 03/08 12:26 Order name: XRAY Shoulder LEFT 2 view; Complete Time: 14:11 aa5 Administered Medications: No medications were administered Disposition Summary: 03/08/25 14:15 Discharge Ordered Notes: Location: Home rn Problem: new rn Symptoms: are unchanged rn Condition: Stable rn Diagnosis - Pain in left shoulder rn - Radiculopathy, cervical region rn Followup: rn - With: Private Physician - When: As needed - Reason: Recheck today's complaints, Re-evaluation by your physician Discharge Instructions: - Discharge Summary Sheet rn - Cervical Radiculopathy rn - Shoulder Pain rn Forms: - Medication Reconciliation Form rn - Antibiotic contract attorney - Prescription Opioid Use rn - Patient Portal Instructions rn - Leadership Thank You Letter rn Prescriptions: - gabapentin 100 mg Oral capsule - take 1 capsule ORAL route 2 times per day As needed; 14 capsule; Refills: 0, rn Product Selection Permitted - Cyclobenzaprine 10 mg Oral tablet - take 1 tablet ORAL route every 8 hours As needed; 12 tablet; Refills: 0, rn Product Selection Permitted - Medrol (William) 4 mg Oral Tablets, Dose Pack - take 1 tablet ORAL route as directed - follow package instructions; 1 packet; rn Refills: 0, Product Selection Permitted Signatures: Dispatcher [employer] José Newberry MD MD rn Calderon, Audri, RN RN aa5
--- NOTE | 2025-03-08 14:15 | ER ---
Nurse's Notes [facility] Name: Cody Barrios Age: 39 yrs Sex: Male : 1985 Arrival Date: 03/08/2025 Time: 12:09 Bed 9 Private MD: Diagnosis: Pain in left shoulder;Radiculopathy, cervical region Presentation: 03/08 12:22 Chief complaint: Chief complaint: Patient states: "I picked up a 44lb bag of dog food aa5 about a week ago and I think I hurt myself". Pt c/o pain to left scapular area radiating to left shoulder and left arm. 12:22 Acuity: SEAMUS 3 aa5 12:22 Method Of Arrival: Ambulatory aa5 12:22 Coronavirus screen: At this time, the client does not indicate any symptoms associated aa5 with coronavirus-19. Ebola Screen: Patient denies travel to an Ebola-affected area in the 21 days before illness onset. Initial Sepsis Screen: Does the patient meet any 2 criteria? No. Patient's initial sepsis screen is negative. Does the patient have a suspected source of infection? No. Patient's initial sepsis screen is negative. Risk Assessment: Do you want to hurt yourself or someone else? Patient reports no desire to harm self or others. Onset of symptoms was February 2025. Historical: - Allergies: 12:27 EGG/POULTRY; aa5 12:27 Peanut; aa5 - PMHx: 12:27 Asthma; aa5 - PSHx: 12:27 wrist; aa5 - Immunization history:: Adult Immunizations unknown. - Infectious Disease History:: Denies. - Social history:: Smoking status: Patient reports the use of cigarette tobacco products, Reported history of juuling and/or vaping. - Family history:: not pertinent. - Hospitalizations: : No recent hospitalization is reported. Screenin:22 [facility] ED Fall Risk Assessment (Adult) History of falling in the last 3 months, iw including since admission No falls in past 3 months (0 pts) Confusion or Disorientation No (0 pts) Intoxicated or Sedated No (0 pts) Impaired Gait No (0 pts) Mobility Assist Device Used No (0 pt) Altered Elimination No (0 pt) Score/Fall Risk Level 0 - 2 = Low Risk Oriented to surroundings, Educated pt \\T\\ family on fall prevention, incl call for assistance when getting out of bed. Abuse screen: Denies injuries from another. Nutritional screening: No deficits noted. Tuberculosis screening: No symptoms or risk factors identified. Assessment: 14:22 Reassessment: Patient appears in no apparent distress at this time. Patient and/or iw family updated on plan of care and expected duration. Pain level reassessed. Patient is alert, oriented x 3, equal unlabored respirations, skin warm/dry/pink. Vital Signs: 12:22 BP 155 / 107; Pulse 90; Resp 18 S; Temp 98.2(O); Pulse Ox 98% on R/A; Weight 92.99 kg aa5 (R); Height 6 ft. 1 in. (R); 12:22 Body Mass Index 27.05 (92.99 kg, 185.42 cm) aa5 ED Course: 12:12 Patient arrived in ED. im 12:13 José Morales MD is Attending Physician. rn 12:22 Arm band placed on. aa5 12:27 Triage completed. aa5 12:41 CT C Spine In Process Unspecified. EDMS 13:38 XRAY Shoulder LEFT 2 view In Process Unspecified. EDMS 14:22 Christine Zhao, RN is Primary Nurse. iw 14:22 No provider procedures requiring assistance completed. Patient did not have IV access iw during this emergency room visit. Administered Medications: No medications were administered Outcome: 14:15 Discharge ordered by MD. rn 14:22 Discharged to home ambulatory, with family, iw 14:22 Condition: good 14:22 Discharge instructions given to patient, family, Instructed on discharge instructions, follow up and referral plans. medication usage, Demonstrated understanding of instructions, follow-up care, medications, Prescriptions given X 3, 14:22 Patient left the ED. iw Signatures: Dispatcher [employer] EDMS Christine Zhao RN RN iw José Morales MD MD rn Calderon, Audri, RN RN aa5 Fatou Blackwood Corrections: (The following items were deleted from the chart) 12:29 12:22 Chief complaint: aa5 aa5 13:28 13:28 Initial lab(s) drawn, by ED staff, sent to lab. aa5 aa5
[2025-03-08 14:49] VITALS: BP 155/107; TEMP 98.2; O2SAT 98
== END 2025-03-08 14:22 | disposition home or self-care (01) ==
LOC: ER 12:09
DX: M54.12 Radiculopathy, cervical region (principal)
CPT/HCPCS: 72125; 99283

== ENCOUNTER 2025-04-03 16:53 | Emergency (ER) | payer SELFPAY ==
--- OUTSIDE RECORDS SUMMARY | 2025-04-03 16:57 | XMS REPORT | Continuity of Care Document ---
Author Name Unknown Address [address] [place] [address] Organization [facility] [place] Address [address] [place] [address] Care Team Providers Care [employer] Sales Engineer Name Role Phone Salome Tracy DO Primary Care Physician [phone] [id number] Attending Clinician Unavailable TESTING, JOSE RAMON MORALES Attending Clinician U Rosio Carroll Attending Clinician [phone] ROSIO SEGUNDO Attending Clinician Unavailable SALOME TRACY Attending Clinician Unavailable Salome Tracy DO Attending Clinician [phone] Payers Payer Name Policy Type Policy Number Effective Date Expirati on Date Source [facility] 2 [id number] 2021 00:00:00 Problems Condition Name Condition Details [...] MG oral Tablet 11-12 00:00: 00 Yes [id number] 1{tbl} [id number] 3D Take 1 tablet by mouth every [...] Diastolic blood pressure 2021-11-12 20:10:00 68 mm[Hg] Jacuqelyn Crawford ld Heart rate 2021-11-12 20:10:00 82 /min Lesly arreola kameronjayda Body temperature 2021-11-12 20:10:00 36.56 June Jacquelyn kameronjayda Respiratory rate 2021-11-12 20:10:00 14 /min Jacquelyn Kraft Body height 2021-11-12 20:10:00 182.9 cm Chantelle grant kameronjayda Body weight 2021-11-12 20:10:00 98.431 kg Chantelle grant Abena BMI 2021-11-12 20:10:00 29.43 kg/m2 Chantelle grant kameronjayda Encounters Start Date/Time End Date/Time Encounter Type Admission Type Attending [facility] Care Facility Care Department Encounter ID Source 2022-03-18 15:55:00 2022-03-18 15:55:00 Outpatient [id number] JACQUELYN QURESHI [id number] Jacquelyn Kraft 2022-03-18 15:00:00 2022-03-18 15:00:00 Outpatient TESTING, LJ JACQUELYN QURESHI [id number] Jacquelyn Kraft 2022-03-18 14:30:00 2022-03-18 14:45:30 Telemedici ne Rosio Segundo [id number] Jacquelyn rm 2022-03-18 00:00:00 2022-03-18 00:00:00 Outpatient ROSIO SEGUNDO JACQUELYN QURESHI [id number] Jacquelyn Kraft 2021-11-13 00:00:00 2021-11-13 00:00:00 Outpatient DEMARCUS SALOME QURESHI [id number] Jacquelyn Kraft 2021-11-12 15:15:00 2021-11-12 15:45:00 Office Visit DemarcusSalome Jackson [id number] Jacquelyn Kraft 2021-11-11 10:30:00 2021-11-11 10:30:00 Outpatient SALOME TRACY [id number] Jacquleyn Kraft 2021-11-11 10:00:00 2021-11-11 10:00:00 Outpatient SALOME TRACY [id number] Jacquelyn Kraft 2021-11-11 00:00:00 2021-11-11 00:00:00 Outpatient SALOME TRACY [id number] Jacquelyn Kraft
--- NOTE | 2025-04-03 17:56 | RAD REPORT ---
EXAM: CT CHEST, ABDOMEN AND PELVIS WITH CONTRAST CLINICAL INDICATION: Male, 39 years old. CHEST PAIN TECHNIQUE: CT chest, abdomen, and pelvis was performed, following the administration of contrast, as per department protocol. Axial, sagittal and coronal reconstructions were obtained. One or more of the following dose reduction techniques were used: Automated exposure control, adjustment of the mA a nd/or kV according to patient size, and/or iterative reconstruction. Unless otherwise specified, incidental findings do not require dedicated imaging follow-up. COMPARISON: CT abdomen and pelvis 12/22/2021 FINDINGS: LUNGS AND AIRWAYS: No evidence of airspace or interstitial process. No nodules. PLEURA: No pleural effusion. No pneumothorax. MEDIASTINUM AND LYMPH NODES: No mediastinal mass or fluid collection. Normal size mediastinal, hilar, and axillary lymph nodes. THORACIC AORTA: Normal caliber and configuration. PULMONARY ARTERIES: Normal caliber. OSSEOUS STRUCTURES AND CHEST WALL: Intact. LIVER: Normal in size and contour. Hypoattenuating subcapsular left liver lobe lesion posteriorly rosemary suring 2.5 cm, with suggestion of mild nodular peripheral enhancement, could represent a small hemangioma, stable, although not well characterized. No other suspicious focal lesion or biliary dili tation. BILIARY SYSTEM: No suspicious abnormalities. PANCREAS: No mass, ductal dilation, or tal-pancreatic fluid. SPLEEN: Normal size. No focal lesion. ADRENALS: Normal; no mass. KIDNEYS AND URETERS: Normal size and contour. No hydronephrosis. URINARY BLADDER: Normal contour. GASTROINTESTINAL TRACT: No bowel obstruction, free air, significant free fluid or abscess. APPENDIX: No inflammatory changes in region of appendix. LYMPH NODES: No lymphadenopathy. ABDOMINAL AORTA AND OTHER VESSELS: Normal caliber aorta and IVC. MUSCULOSKELETAL: No acute or suspicious osseous abnormality. IMPRESSION: No acute or traumatic abnormalities seen in the chest, abdomen or pelvis. Left liver lobe hypodense 2.5 cm lesion, suggestive of a small hemangioma, stable.
[2025-04-03] MEDS ORDERED: NA CHLORIDE 0.9% 1,000 ML ONE (18:09)
[2025-04-03] MEDS ORDERED: ONDANSETRON 4 MG/2 ML VIAL ONE (18:09)
[2025-04-03] MEDS ORDERED: MORPHINE 4 MG/ML SYR ONE (18:09)
[2025-04-03] MEDS ORDERED: DIAZEPAM 5 MG TABLET ONE (18:48)
[2025-04-03] MEDS ORDERED: KETOROLAC 30 MG/ML INJ ONE (18:48)
[2025-04-03] MEDS ORDERED: HYDROCODONE/APAP 5/325 MG TAB ONE (18:48)
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
[2025-04-03 19:50] VITALS: TEMP 98.6
[2025-04-03 19:52] VITALS: BP 140/91; O2SAT 98
== END 2025-04-03 19:04 | disposition home or self-care (01) ==
LOC: ER 16:53
DX: S20.212A Contusion of left front wall of thorax, initial encounter (principal); S30.1XXA Contusion of abdominal wall, initial encounter; V28.09XA Other motorcycle driver injured in noncollision transport accident in nontraffic accident, initial encounter; F17.210 Nicotine dependence, cigarettes, uncomplicated
CPT/HCPCS: 71260; 74177; 82565; 96374; 96375; 99284; J1885; J2405; J7030; Q9967